=== PATIENT | female | born 1955 | race Caucasian/White ===

== ENCOUNTER 2017-02-11 08:00 | Outpatient (RCR) | payer OTHER | END 2017-03-01 08:19 | disposition home or self-care (01) | LOC: PT 08:00 | DX: M25.512 Pain in left shoulder (principal) ==

== ENCOUNTER 2017-08-08 11:00 | Outpatient (RCR) | payer OTHER | END 2017-09-19 | disposition home or self-care (01) | LOC: PT | DX: M25.512 Pain in left shoulder (principal) ==

== ENCOUNTER 2017-09-22 16:00 | Outpatient (RCR) | payer OTHER | END 2017-09-22 16:30 | disposition still patient (30) | LOC: PT 16:00 | DX: Z47.89 Encounter for other orthopedic aftercare (principal) ==

== ENCOUNTER 2019-08-16 16:00 | Outpatient (RCR) | payer BC | END 2019-08-16 16:30 | disposition still patient (30) | LOC: PT 16:00 | DX: M19.011 Primary osteoarthritis, right shoulder (principal); M75.51 Bursitis of right shoulder ==

== ENCOUNTER 2019-11-15 08:30 | Outpatient (RCR) | payer BC | END 2019-11-15 09:00 | disposition still patient (30) | LOC: PT 08:30 | DX: M25.511 Pain in right shoulder (principal); Z98.890 Other specified postprocedural states ==

== ENCOUNTER → 2020-08-19 | Outpatient (CLI) | payer OTHER | LOC: RAD 06:48 | DX: M67.874 Other specified disorders of tendon, left ankle and foot (principal) ==

== ENCOUNTER 2020-11-12 08:00 | Outpatient (RCR) | payer OTHER | END 2020-11-12 17:00 | disposition home or self-care (01) | LOC: PT 08:00 | DX: M25.572 Pain in left ankle and joints of left foot (principal) ==

== ENCOUNTER 2021-07-15 12:58 | Outpatient (RCR) | payer OTHER | END 2021-07-24 23:59 | disposition home or self-care (01) | LOC: PT 12:58 | DX: M47.812 Spondylosis without myelopathy or radiculopathy, cervical region (principal) ==

== ENCOUNTER 2021-07-27 11:30 | Outpatient (RCR) | payer OTHER | END 2021-08-24 | disposition home or self-care (01) | LOC: PT | DX: M47.812 Spondylosis without myelopathy or radiculopathy, cervical region (principal) ==